=== PATIENT | female | born 1990 | race Hispanic/Latino ===

== ENCOUNTER → 2016-03-04 | Outpatient (CLI) | payer OTHER ==
--- NOTE | 2016-03-05 03:33 | REP ---
Clinical: Anatomical evaluation. Comparison: None . Findings: Examination demonstrates a single live intrauterine in variable presentation. motion is identified by technologist. Placenta is noted posteriorly and grade zero with evidence for complete placenta previa. Amniotic fluid volume is normal. Cervix measures 5.4 cm in length and appears closed. Nuchal cord cannot be excluded. Gestational age by LMP 19 weeks 0 days with RUTHANN 07/29/2016 . Gestational age by current measurements 18 weeks 5-day with RUTHANN eight 07/31/2016 . FHR equals 150 beats per minute. BPD 4.3 cm 19 weeks 0 days HC 15.9 cm 18 weeks 5 days AC 13.2 cm 18 weeks 5 days FL 2.7 cm 18 weeks 2 days HL 2.7 cm 18 weeks 2 days HC/AC ratio 1.21 Estimated weight 246 grams ( 31st percentile). Anatomical assessment demonstrates normal structures including cranium, choroid plexus, cavum, cerebellum/posterior fossa, facial features, lungs, four-chamber heart/ventricular outflow tracts, diaphragm, stomach, cord insertion/three-vessel cord, kidneys/bladder, and extremities. Limited evaluation of the spine. Impression: Single live intrauterine in variable presentation demonstrating appropriate interval growth. Complete placenta previa noted. Limited evaluation of the spine. Signed by Rivas Hopkins MD 03/05/2016 03:24 A
== END ==
LOC: M RAD 14:42
PROVIDERS: ATTEND Obstetrics & Gynecology
DX: Z36 Encounter for antenatal screening of mother (principal); Z3A.18 18 weeks gestation of pregnancy

== ENCOUNTER → 2016-04-02 | Outpatient (CLI) | payer OTHER ==
--- NOTE | 2016-04-02 10:52 | REP ---
Clinical: Anatomical evaluation. Comparison: History of placenta previa. Findings: Examination demonstrates a single live intrauterine in cephalic presentation. motion is identified by technologist. Placenta is noted left laterally and grade zero with evidence for marginal previa. Amniotic fluid volume is normal. Cervix measures 5.1 cm in length and appears closed. No evidence for nuchal cord. Gestational age by LMP 23 weeks 1 day with RUTHANN 07/29/2016 . Gestational age by current measurements 22 weeks 6 days with RUTHANN 07/31/2016 . FHR equals 153 beats per minute. Estimated weight 540 grams ( 37th percentile). Anatomical assessment demonstrates normal structures including cranium, choroid plexus, cavum, cerebellum/posterior fossa, facial features, lungs, four-chamber heart/ventricular outflow tracts, diaphragm, stomach, cord insertion/three-vessel cord, kidneys/bladder, spine, and extremities. Impression: 1. Single live intrauterine in cephalic presentation demonstrating appropriate interval growth. 2. Anatomical assessment is complete and normal. 3. Evidence for marginal previa with the placenta abutting the internal os. Follow-up examination post 28 weeks is recommended. Signed by Rivas Hopkins MD 04/02/2016 10:43 A
== END ==
LOC: M RAD 09:32
PROVIDERS: ATTEND Advanced Practice Midwife
DX: Z36 Encounter for antenatal screening of mother (principal); Z3A.22 22 weeks gestation of pregnancy

== ENCOUNTER → 2016-05-06 | Outpatient (CLI) | payer OTHER ==
--- NOTE | 2016-05-06 17:01 | REP ---
Clinical: Placental location . Comparison: 04/02/2016 . Findings: Examination demonstrates a single live intrauterine in cephalic presentation. motion is identified by technologist. Placenta is noted posteriorly and grade one without evidence for abruption. At the and of the examination with the head approaching the closed internal os, the placental tip was noted to be greater than 3 cm from the cervix. Amniotic fluid volume is normal. Cervix measures 5.0 cm in length and appears closed. No evidence for nuchal cord. Gestational age by LMP 28 weeks 0 days with RUTHANN 07/29/2016 . FHR equals 128 beats per minute. Amniotic fluid index equals 14.6 cm (9.4 - 22.8). Impression: Placenta is noted posteriorly and appears greater than 3 cm from the closed internal os. Cervix measures 5 cm in length. Amniotic fluid volume is within normal limits. Fetus in cephalic presentation. Signed by Rivas Hopkins MD 05/06/2016 04:53 P
== END ==
LOC: M RAD 15:44
PROVIDERS: ATTEND Nurse Practitioner Women's Health
DX: O43.92 Unspecified placental disorder, second trimester (principal)

== ENCOUNTER → 2016-05-23 | Outpatient (REF) | payer OTHER | LOC: M LAB REF 12:17 | PROVIDERS: ATTEND Physician Assistant | DX: R30.0 Dysuria (principal) ==

== ENCOUNTER → 2017-12-29 | Outpatient (CLI) | payer OTHER ==
[2017-12-29 13:15] LABS: BASO % 0.3 % (0.0-1.0); EOS # 0.1 10^3/uL (0.0-0.50); EOS % 0.7 % (0.0-3.0); HEMOGLOBIN 14.6 g/dl (12.0-15.5); IMMATURE GRANULOCYTE % 0.3 % (0-3.0); LYMPH # 2.2 10^3/uL (1.5-6.5); LYMPH % 30.3 % (24.0-44.0); MEAN CORPUSCULAR HEMOGLOBIN 28.2 pg (27.0-33.0); MEAN CORPUSCULAR HGB CONC 32.4 g/dl (32.0-36.5); MEAN CORPUSCULAR VOLUME 86.9 fl (80.0-96.0); MONO # 0.4 10^3/uL (0.0-0.8); MONO % 5.4 % (0.0-5.0); NEUTROPHILS # 4.7 10^3/uL (1.8-7.7); PLATELET COUNT, AUTOMATED 255 10^3/uL (150-450); RED BLOOD COUNT 5.18 10^6/uL (4.00-5.40); WHITE BLOOD COUNT 7.4 10^3/uL (4.0-10.0)
[2017-12-29 13:30] LABS: ALBUMIN 3.9 GM/DL (3.2-5.2); ALBUMIN/GLOBULIN RATIO 1.08 (1.00-1.93); ALKALINE PHOSPHATASE 72 U/L (45-117); ALT/SGPT 30 U/L (12-78); ANION GAP 6 MEQ/L (8-16); AST/SGOT 16 U/L (7-37); BILIRUBIN,TOTAL 0.3 MG/DL (0.2-1.0); BLOOD UREA NITROGEN 17 MG/DL (7-18); CALCIUM LEVEL 9.5 MG/DL (8.5-10.1); CARBON DIOXIDE LEVEL 29 MEQ/L (21-32); CHLORIDE LEVEL 105 MEQ/L (98-107); CREATININE FOR GFR 0.66 MG/DL (0.55-1.30); FREE T4 0.99 NG/DL (0.76-1.46); GLOMERULAR FILTRATION RATE > 60.0 (>60); GLUCOSE, FASTING 99 MG/DL (70-100); POTASSIUM SERUM 4.7 MEQ/L (3.5-5.1); SODIUM LEVEL 140 MEQ/L (136-145); TOTAL PROTEIN 7.5 GM/DL (6.4-8.2)
[2017-12-29 13:31] LABS: TOTAL 25(OH) VITAMIN D 23.5 NG/ML (30.0-100.0)
== END ==
LOC: M SMT 10:44
DX: Z13.29 Encounter for screening for other suspected endocrine disorder (principal); Z13.0 Encounter for screening for diseases of the blood and blood-forming organs and certain disorders involving the immune mechanism
CPT/HCPCS: 84443